=== PATIENT | female | born 1985 | race Caucasian/White ===

== ENCOUNTER 2022-12-10 23:08 | Emergency (ER) | payer OTHER, BC ==
[~2022-12-10] VITALS: Ht 162.6 cm; Wt 68.0 kg
[2022-12-10] MEDS ORDERED: SPIR25 PO (23:28)
[2022-12-10] MEDS ORDERED: PROP10 PO (23:28)
[2022-12-10] MEDS ORDERED: Vyvanse30 MG PO (23:29)
== END 2022-12-10 23:49 | disposition left against medical advice (07) ==
LOC: ER 23:08
DX: S39.012A Strain of muscle, fascia and tendon of lower back, initial encounter (principal); V89.2XXA Person injured in unspecified motor-vehicle accident, traffic, initial encounter; Z79.899 Other long term (current) drug therapy
CPT/HCPCS: A9270